=== PATIENT | male | born 1985 ===

== ENCOUNTER 2016-11-19 08:57 | Emergency (ER) | payer BC ==
[2016-11-19 08:57] VITALS: BMI 25.0
[2016-11-19 09:03] VITALS: BP 120/74; PULSE 79; RESP 18; TEMP 98.4; O2SAT 99
[2016-11-19] MEDS ORDERED: Naproxen 550 mg Tab PO STA (09:32)
--- NOTE | 2016-11-19 09:35 | C.PDOC ---
History Of Present Illness 30yo male presents to the ED for evaluation of left shoulder pain, present for the past 6 months. Pt reports he initially injured himself while lifting a heavy object; seen at [facility] in May and had an XRay performed which showed no fractures or dislocations. Pt was instructed to follow up with an orthopedist but has not been able to due to insurance issues. Pt currently denies any new injuries. He states his shoulder pain radiates down his left arm. He denies cough, fever, chest pain, shortness of breath, sensory changes. Time Seen by Provider: 11/19/16 09:06 Chief Complaint (Nursing): Upper Extremity Problem/Injury History Per: Patient History/Exam Limitations: no limitations Onset/Duration Of Symptoms: Persistent (6 months) Current Symptoms Are (Timing): Still Present Quality: "Pain" Severity: Moderate Exacerbating Factor(s): Movement Past Medical History Reviewed: Historical Data, Nursing Documentation, Vital Signs Vital Signs: Last Vital Signs Temp 98.4 F 11/19/16 09:01 Pulse 79 11/19/16 09:01 Resp 18 11/19/16 09:01 BP 120/74 11/19/16 09:01 Pulse Ox 99 11/19/16 10:37 - Medical History PMH: No Chronic Diseases Surgical History: No Surg Hx Family History: States: No Known Family Hx - Social History Hx Alcohol Use: No Hx Substance Use: No Review Of Systems Except As Marked, All Systems Reviewed And Found Negative. Constitutional: Negative for: Fever, Chills Cardiovascular: Negative for: Chest Pain Respiratory: Negative for: Cough, Shortness of Breath Gastrointestinal: Negative for: Nausea, Vomiting, Abdominal Pain Musculoskeletal: Positive for: Shoulder Pain (right) Skin: Negative for: Rash Neurological: Negative for: Numbness Physical Exam - Physical Exam Appears: Well, Non-toxic, No Acute Distress Skin: Normal Color, Warm, Dry, No Rash Eye(s): bilateral: Normal Inspection Neck: Normal, Normal ROM, No Midline Cervical Tenderness, No Paracervical Tenderness, No Step Off Deformity, Supple Cardiovascular: Rhythm Regular Respiratory: Normal Breath Sounds, No Rales, No Rhonchi, No Wheezing Extremity: Normal ROM, Tenderness (tenderness to palpation at left anterior shoulder, head of humerus and medial humerus.), Capillary Refill (< 2 sec all digits ), No Deformity, No Swelling Extremity: Bilateral: Atraumatic, Normal Color And Temperature, Normal ROM Pulses: Left Radial: Normal, Right Radial: Normal Neurological/Psych: Oriented x3, Normal Sensation ED Course And Treatment O2 Sat by Pulse Oximetry: 99 (RA) Pulse Ox Interpretation: Normal Progress Note: Patient given PO Naprosyn. He was instructed to follow up with orthopedics within 1 week without fail, and he understands he should return to ED if symptoms worsen. Reevaluation Time: 09:45 Reassessment Condition: Improved (Patient states he is feeling better and pain has improved.) Medical Decision Making Medical Decision Making: . Disposition Counseled Patient/Family Regarding: Studies Performed, Diagnosis, Need For Followup, Rx Given - Disposition Referrals: Joseph Zimmer III, MD [Staff Provider] - [facility] [Outside] [facility] [Outside] Disposition: HOME/ ROUTINE Disposition Time: :45 Condition: STABLE Additional Instructions: FOLLOW UP WITH ORTHOPEDICS WITHIN 1 WEEK USE MEDICATION NEEDED RETURN TO ER IF SYMPTOMS WORSEN Prescriptions: Naproxen [Naprosyn Tab] 375 mg PO BID PRN #20 tab PRN Reason: pain Instructions: Shoulder Pain (ED) Forms: [employer] (Divehi) Print Language: MACEDONIAN - POA Present On Arrival: None - Clinical Impression Clinical Impression: Chronic left shoulder pain - Scribe Statement The provider has reviewed the documentation as recorded by the Joseline Salazar Provider Attestation: Provider Scribe Attestation: All medical record entries made by the Marilynibcolleen were at my direction and personally dictated by me. I have reviewed the chart and agree that the record accurately reflects my personal performance of the history, physical exam, medical decision making, and the department course for this patient. I have also personally directed, reviewed, and agree with the discharge instructions and disposition.
[2016-11-19] MEDS ORDERED: Naproxen 550 mg Tab PO ONE (09:43)
== END 2016-11-19 09:45 | disposition home or self-care (01) ==
LOC: C.ER 08:57
DX: M25.512 Pain in left shoulder (principal)